=== PATIENT | male | born 1965 | race Caucasian/White ===

== ENCOUNTER 2021-09-13 08:33 | Outpatient (CLI) | payer OTHER ==
--- NOTE | 2021-09-13 10:15 | XRay Report ---
XR spine lumbosacral 2-3V INDICATION / CLINICAL INFORMATION: BACK PAIN. COMPARISON: None available. FINDINGS: BONES/JOINT(S): No acute fracture or subluxation. Mild generalized spondylosis with small anterior an d lateral osteophytes. SOFT TISSUES: No significant abnormality. ADDITIONAL FINDINGS: None. Signer Name: Ryan Michaels MD Signed: 09/13/2021 10:10 AM Workstation Name: [id number]
== END 2021-09-13 08:34 | disposition home or self-care (01) ==
LOC: EDBD 08:33 → XRAY 08:33
PROVIDERS: ATTEND Internal Medicine
DX: M47.816 Spondylosis without myelopathy or radiculopathy, lumbar region (principal); M25.78 Osteophyte, vertebrae
CPT/HCPCS: 72100